=== PATIENT | female | born 1965 | race Caucasian/White ===

== ENCOUNTER 2017-03-07 09:35 | Emergency (ER) | payer MEDICARE ==
--- NOTE | ~2017-03-07 | CR63 ---
[facility] A Service of [facility] RADIOLOGY TEXT RESULTS PATIENT: LILIANE LARES LOCATION: [facility] : 63 UNIT #: [id number] AGE: [address]: Rosy Pink SEX: F ORDER DR: [id number] [facility] [address] [place], [place] [address] [id number] MR#: [id number] Acc #: [id number] NAME: LILIANE LARES : 1965 SEX: F STUDY DATE/TIME: 03/07/2017 11:27 UNIT: [facility] ROOM: STUDY DESCRIPTION: CR Chest 2 View Attending Physician: Rosy Pink Pa-C Ordering Physician: Rosy Pink Pa-C Primary Care Physician: Roro Cunningham A.P.R.N. MEDICAL IMAGING REPORT This report is preliminary unless electronic signature is present EXAM PA and lateral chest radiograph INDICATIONS Cough for 1 week, this apparently worsened yesterday. FINDINGS Heart size is within normal limits. Lungs appear clear. No pneumothorax, pleural effusion or acute infiltrate is identified. IMPRESSION Negative. Dictated by... Cristina Jose M.D. THIS IS AN ELECTRONICALLY VERIFIED REPORT Cristina Jose M.D. at 03/08/2017 4:53 PM AFF/psc TD: 03/07/2017 20:01 JOB #: [id number] MEDICAL IMAGING REPORT Page 1 of 1 COPY
[~2017-03-07 09:35] MED LIST: AMITRYPTYLINE PO; CARAFATE1 GM; FLEXERIL10 MG PO; IBUPROFEN800 MG PO; KEPPRA500 M2 PO; LORTAB 5/500 TA1 TA1 PO; PRAVASTATIN SOD20 MG PO
== END 2017-03-07 13:35 | disposition home or self-care (01) ==
LOC: CED 09:35
DX: J45.901 Unspecified asthma with (acute) exacerbation (principal); E78.5 Hyperlipidemia, unspecified; Z98.890 Other specified postprocedural states
CPT/HCPCS: 71020; 87651; 94640; 96372; 99284; J1885